=== PATIENT | female | born 1965 | race Caucasian/White ===

== ENCOUNTER → 2017-04-05 | Outpatient (CLI) | payer OTHER ==
[~2017-04-05] MED LIST: ADULT LOW DOSE81 MG PO; B-COMPLEX-VITA1 EACH PO; BUMEX2 MG PO; CALCIUM 600 +1 EAC1 PO; CELEXA 10 MG TA10 M1 PO; CELEXA 20 MG TA20 M1 PO; CIPROFLOXACIN500 M1 PO; COUMADIN 5 MG TA5 M1 PO; CRANBERRY CONC500 MG PO; CRANBERRY400 MG PO; FIORINAL 50-321 EACH PO; FISHOIL OR; FLEXERIL PO; FUROSEMIDE 40 M40 M1 PO; FUROSEMIDE 40 M40 MG PO; GLUCOPHAGE1000 MG PO; HYDROCHLOROTH12.5 MG PO; HYDROCHLOROTHIA25 M1 PO; HYDROCODONE-AP1 EA15 PO; IBUPROFEN 600600 M1 PO; IBUPROFEN 800800 M1 PO; K-DUR10 MEQ PO; KEFLEX500 MG PO; LEVOTHROID50 MCG PO; LISINOPRIL10 MG PO; MEDROLDOSEPACK PO; MOM; NEURONTIN 300300 M1 PO; NORCO 5-325 TA1 EACH PO; NORETHINDRONE AC5 MG PO; PERCOCET 5-3251 EACH PO; PHENERGAN 25 MG25 M1 PO; POTASSIUM20; PRAVACHOL40 MG PO; SENNA CONCENTR8.6 MG PO; TIROSINT75 MCG PO; TOPAMAX100 MG PO; VICODIN 5-5001 EACH PO; VITAMIN D10000 UNIT PO; WELLBUTRIN XL300 M2 PO; YASMIN 28 TABL1 EACH PO
== END ==
LOC: RAD 03:15
DX: N64.4 Mastodynia (principal)

== ENCOUNTER → 2019-01-30 | Outpatient (CLI) | payer OTHER ==
[~2019-01-30] MED LIST changes: +ADIPEX-P37.5 MG PO; +ASPIR 8181 MG PO; +B-121000 MC2 PO; +CALCIUM 500 +1 EAC5 PO; +CYMBALTA20 MG PO; +GARCINIA CAMBO1 EACH PO; +JANUVIA100 MG PO; +LISINOPRIL20 MG PO; +MAGNESIUM500 MG PO; +NAPROSYN500 MG PO; +NORFLEX100 MG PO; +OMEGA 3 1,0001 EACH PO; -POTASSIUM20; +POTASSIUM20 PO; +PROBIOTIC1 EAC1 PO; +SIMVASTATIN40 MG PO; +TRAMADOL 50 MG50 MG PO; +VOLTAREN GEL 1100 G2 TOP; +WOMEN'S DAILY1 EAC5 PO
== END ==
LOC: CAT 11:38
DX: Z13.6 Encounter for screening for cardiovascular disorders (principal); E78.00 Pure hypercholesterolemia, unspecified; I25.10 Atherosclerotic heart disease of native coronary artery without angina pectoris

== ENCOUNTER → 2019-12-23 | Outpatient (CLI) | payer OTHER | LOC: BC 15:22 | DX: R92.8 Other abnormal and inconclusive findings on diagnostic imaging of breast (principal); N80.9 Endometriosis, unspecified ==